=== PATIENT | female | born 1985 | race Caucasian/White ===

== ENCOUNTER 2017-07-21 16:39 | Emergency (ER) | payer BC ==
[~2017-07-21] VITALS: Ht 167.6 cm; Wt 86.2 kg
[~2017-07-21 16:39] MED LIST: AMOX/CLAV POT 81 TAB PO; AMOXIL500 M1 PO; AUGMENTIN 875-1 EACH PO; AUGMENTIN XR 101 TER PO; BENADRYL 25MG C25 MG PO; BENTYL10 M1 PO; CIPRO 500MG TA500 MG PO; ESCITALOPRAM10 M1 PO; HYDROCODONE1 TABLET PO; IBUPROFEN 600M600 MG PO; IBUPROFEN400 MG PO; IRON TABLETS325 MG PO; KEFLEX500 M1 PO; KOSHER PRENATA1 EACH PO; LABETALOL 100M100 MG PO; LORTAB 7.5/5001 TA1 PO; MEDI-FIRST IBU200 MG PO; MEDROL 4MG. DOSE4 MG PO; NORCO 325 MG-101 TAB PO; NORCO 325 MG-51 TAB PO; ONDANSETRON 4MG4 M1 PO; PERCOCET 5/3251 EACH PO; PHENERGAN 25MG.25 M1 PO; PHENERGAN25 M3 PO; PRENATAL PLUS1 TA1 PO; TYLENOL ES500 MG PO; TYLENOL325 MG PO; ZOFRAN ODT4 MG PO; ZOFRAN ODT8 MG PO
--- OUTSIDE RECORDS SUMMARY | 2017-07-21 16:46 | External Medical Summary Rpt | CCD ---
Author Author , MAIKOL LASSITER Address Unknown Phone [email or web address] Team Providers Care Traveling Phlebotomist Name Role Phone Bautista Alexandra MD, Unavailable Unavailable Bautista Alexandra MD Purpose Continuity of Care Document - 05-30-2013 through 2016 Problems Code Diagnosis DOS Provider Status 675.24 675.24 07-17-2013 [place] MASTITIS-PO [facility] 642.31 642.31 06-02-2013 Jimy TRANS [facility] LIVERED 658.01 658.01 06-02-2013 [place] OLIGOHYDRAM [facility] R 664.01 664.01 DEL 06-02-2013 Jimy W 1 DEG [facility] V27.0 V27.0 06-02-2013 [facility] LIVEBORN Allergies, Adverse Reactions, Alerts Type Drug Allergy Adverse Reaction to Substance Substance Reaction Severity NO KNOWN DRUG Unknown Unknown ALLERGIES Medications Na ND Rx Da Fi Fi Am Da Di Ph RX Ph St me C No te ll ll ou ys ag ar # ys at rm s nt no ma ic us Or Da si cy ia de te s n re d VA 00 10 0 No OM 64 -2 ET 11 1- Lo LEE 49 20 ng ZI 53 13 er NE 5 Ac 25 ti ve MG /M L AM PU L LA 00 10 0 No BE 17 -2 TA 24 1- Lo LO 36 20 ng L 46 13 er HC 0 L Ac 10 ti 0 ve MG TA BL ET HY [address] 40 -2 OM 91 1- Lo OR 31 20 ng PH 23 13 er ON 0 E Ac 2 ti MG ve /M L CA RP UJ CT ON 00 10 0 No DA 64 -2 NS 16 1- Lo ET 08 20 ng RO 02 13 er N 5 HC Ac L ti 4 ve MG /2 ML AL KE 00 10 0 No TO 40 -2 RO 93 1- Lo LA 79 20 ng C 50 13 er 30 1 Ac MG ti /M ve L AL MA 00 10 0 No PA 90 -2 P 41 1- Lo 32 98 20 ng 5 26 13 er MG 1 Ac TA ti BL ve ET Ib 62 10 0 No up 58 -2 ro 40 1- Lo fe 74 20 ng n 70 13 er 60 1 0M Ac G ti Ta ve bl et AM 00 10 0 No PI 40 -2 CI 92 1- Lo LL 98 20 ng IN 71 13 er -S 3 UL Ac B ti 3 ve GM AD D AL SO 00 10 0 No DI 40 -2 UM 97 1- Lo 98 20 ng CH 30 13 er LO 9 RI Ac DE ti ve 0. 9% SO DANA TI ON Sa 63 10 1 No li 80 -2 ne 70 0- Lo 10 20 ng Fl 07 13 er us 5 h Ac 10 ti ML ve Sy ri ng e HY [address] 40 -2 OM 91 0- Lo OR 31 20 ng PH 23 13 er ON 0 E Ac 2 ti MG ve /M L CA RP UJ CT ON 00 10 0 No DA 64 -2 NS 16 0- Lo ET 08 20 ng RO 02 13 er N 5 HC Ac L ti 4 ve MG /2 ML AL SO 00 10 1 No DI 40 -2 UM 97 0- Lo 98 20 ng CH 30 13 er LO 9 RI Ac DE ti ve 0. 9% SO DANA TI ON AP 00 09 0 No AP 40 -1 -H 60 6- Lo YD 36 20 ng RO 66 13 er CO 2 DO Ac NE ti ve 32 5M G- 7. 5M G CE 00 09 1 No FT 40 -1 RI 97 5- Lo AX 33 20 ng ON 64 13 er E 9 2 Ac GM ti ve AD D AL SO 00 09 1 No DI 40 -1 UM 97 5- Lo 10 20 ng CH 16 13 er LO 7 RI Ac DE ti ve 0. 9% SO LN Mo 00 09 1 No rp 40 -1 hi 91 5- Lo ne 76 20 ng 23 13 er 2M 0 G/ Ac Ml ti ve Sy ri ng e Ib 62 09 1 No up 58 -1 ro 40 5- Lo fe 74 20 ng n 60 13 er 40 1 0M Ac G ti Ta ve bl et CE 00 09 0 No FT 40 -1 RI 97 4- Lo AX 33 20 ng ON 64 13 er E 9 2 Ac GM ti ve AD D AL SO 00 09 0 No DI 40 -1 UM 97 4- Lo 10 20 ng CH 16 13 er LO 7 RI Ac DE ti ve 0. 9% SO LN Sa 63 09 1 No li 80 -1 ne 70 4- Lo 10 20 ng Fl 07 13 er us 5 h Ac 10 ti ML ve Sy ri ng e KE 00 09 0 No TO 40 -1 RO 93 4- Lo LA 79 20 ng C 50 13 er 30 1 Ac MG ti /M ve L AL ON 00 09 0 No DA 64 -1 NS 16 4- Lo ET 08 20 ng RO 02 13 er N 5 HC Ac L ti 4 ve MG /2 ML AL AP 00 09 0 No AP 40 -1 -H 60 4- Lo YD 36 20 ng RO 66 13 er CO 2 DO Ac NE ti ve 32 5M G- 7. 5M G MA 00 09 0 No PA 90 -1 P 41 4- Lo 32 98 20 ng 5 26 13 er MG 1 Ac TA ti BL ve ET IS 00 09 0 No OV 27 -1 UE 01 4- Lo -3 31 20 ng 70 65 13 er 2 76 Ac % ti IN ve FU S NIKITA TT LE RA 63 09 0 No D- 80 -1 SA 70 4- Lo LI 10 20 ng NE 07 13 er 5A FL Ac US ti H ve 10 ML SY RI NG E Mo 00 09 1 No rp 40 -1 hi 91 4- Lo ne 25 20 ng 83 13 er 4M 0 G/ Ac Ml ti ve Sy ri ng e PA 51 09 2 No NT 07 -1 OP 90 4- Lo RA 05 20 ng ZO 12 13 er LE 0 Ac SO ti D ve DR 40 MG TA B LA 00 09 2 No BE 17 -1 TA 24 4- Lo LO 36 20 ng L 46 13 er HC 0 L Ac 10 ti 0 ve MG TA BL ET LA 20 09 0 No NO 45 -1 LI 18 4- Lo N 71 20 ng CR 22 13 er EA 6 M Ac 56 ti GM ve DE 00 09 0 No XT 40 -0 RO 97 4- Lo SE 92 20 ng 90 13 er 5% 9 -L Ac R ti IV ve SO DANA TI ON LA [address] 40 -0 AT 97 4- Lo ED 95 20 ng 30 13 er RI 9 NG Ac ER ti S ve IN JE CT IO N PI 11 09 0 No TO 11 -0 CI 11 4- Lo N 11 20 ng 30 13 13 er 3 UN Ac IT ti S/ ve LR 50 0M L IV MA 00 09 1 No GN 40 -0 ES 96 4- Lo IU 72 20 ng M 90 13 er MCKINNEY 3 LF Ac ti 20 ve G/ 50 0 ML BA G BU 55 09 1 No TO 39 -0 RP 00 4- Lo LEE 18 20 ng NO 30 13 er L 1 1 Ac MG ti /M ve L AL MA 00 09 2 No PA 90 -0 P 41 4- Lo 32 98 20 ng 5 26 13 er MG 1 Ac TA ti BL ve ET Ib 62 09 2 No up 58 -0 ro 40 4- Lo fe 74 20 ng n 60 13 er 40 1 0M Ac G ti Ta ve bl et OX 00 09 2 No YC 40 -0 OD 60 4- Lo ON 55 20 ng E 26 13 er HC 2 L Ac 5 ti MG ve TA BL ET VA 51 09 2 No OM 07 -0 ET 90 4- Lo LEE 89 20 ng ZI 52 13 er NE 0 Ac 25 ti ve MG TA BL ET SE 67 09 2 No NO 61 -0 KO 80 4- Lo T- 31 20 ng S 00 13 er TA 1 BL Ac ET ti ve A. 50 09 2 No E. 28 -0 R 93 4- Lo PA 25 20 ng DS 00 13 er 1 Ac ti ve AM 00 09 0 No PI 78 -0 CI 13 4- Lo LL 41 20 ng IN 39 13 er 2 2 Ac GM ti ve A- V AL SO 00 09 0 No DI 40 -0 UM 97 4- Lo 10 20 ng CH 16 13 er LO 7 RI Ac DE ti ve 0. 9% SO LN AP 00 09 3 No AP 40 -0 -H 60 3- Lo YD 36 20 ng RO 66 13 er CO 2 DO Ac NE ti ve 32 5M G- 7. 5M G VA 00 09 2 No OM 64 -0 ET 11 3- Lo LEE 49 20 ng ZI 53 13 er NE 5 Ac 25 ti ve MG /M L AM PU L SO 00 09 2 No DI 40 -0 UM 97 3- Lo 98 20 ng CH 42 13 er LO 0 RI Ac DE ti ve 0. 9% SO DANA TI ON LA 00 09 3 No BE 17 -0 TA 24 3- Lo LO 36 20 ng L 46 13 er HC 0 L Ac 10 ti 0 ve MG TA BL ET MA 00 09 1 No GN 40 -0 ES 96 3- Lo IU 72 20 ng M 90 13 er MCKINNEY 3 LF Ac ti 20 ve G/ 50 0 ML BA G LA [address] 40 -0 AT 97 3- Lo ED 95 20 ng 30 13 er RI 9 NG Ac ER ti S ve IN JE CT IO N Vital Signs 07-17-2013 18:30 Name Value Interpretat Reference Comment ion Range Body 101.3 Temperature [degF] BP 67 mm[Hg] Diastolic BP Systolic 122 mm[Hg] Heart 99 /min Rate/Pulse Respiratory 20 /min Rate 07-17-2013 08:00 Name Value Interpretat Reference Comment ion Range O2% 95 % 07-17-2013 02:59 Name Value Interpretat Reference Comment ion Range Height 167.64 cm Weight 84.057 kg Measured 07-16-2013 22:49 Name Value Interpretat Reference Comment ion Range Body 100.5 Temperature [degF] BP 104 mm[Hg] Diastolic BP Systolic 157 mm[Hg] Heart 123 /min Rate/Pulse O2% 98 % Respiratory 20 /min Rate Weight 0 [oz_av] Measured 06-12-2013 18:30 Name Value Interpretat Reference Comment ion Range Body 98.1 [degF] Temperature BP 50 mm[Hg] Diastolic BP Systolic 124 mm[Hg] Heart 95 /min Rate/Pulse Respiratory 20 /min Rate 06-12-2013 16:00 Name Value Interpretat Reference Comment ion Range O2% 98 % 06-10-2013 21:26 Name Value Interpretat Reference Comment ion Range Height 167.64 cm Weight 86.637 kg Measured 06-10-2013 17:59 Name Value Interpretat Reference Comment ion Range Body 102.7 Temperature [degF] BP 82 mm[Hg] Diastolic BP Systolic 151 mm[Hg] Heart 137 /min Rate/Pulse O2% 99 % Respiratory 20 /min Rate Weight 0 [oz_av] Measured 05-31-2013 07:32 Name Value Interpretat Reference Comment ion Range Weight 200 [lb_av] Measured Weight 90.720 kg Measured Results Labs Lab Lab Date Result Refere Interp Status Commen Order Detail nces retati t Range on Hemoglobin A1c in Blood (03-23-2017 13:05) Hemoglo 5.2 % 0.0% Normal complet bin A1c 017 - ed in 13:05 7.0% Blood UA Dipstick Pnl Ur (03-22-2017 13:34) Urobili 0.2 0.2 - complet nogen 017 E.U./dL 1.0 ed Ur Ql 13:34 E.U./dL Strip Nitrite [id number] Negativ complet Ur Ql 017 09 e ed Strip 13:34 Negativ e SCT Leukocy [id number] Negativ complet te 017 09 e ed esteras 13:34 Negativ e Ur Ql e SCT Strip.a uto Prot Ur [id number] Negativ complet Ql 017 09 e ed Strip 13:34 Negativ e SCT Hgb Ur [id number] Negativ complet Ql 017 09 e ed Strip.a 13:34 Negativ uto e SCT Bilirub [id number] Negativ complet Ur Ql 017 09 e ed Strip 13:34 Negativ e SCT Ketones [id number] Negativ complet Ur Ql 017 09 e ed Strip 13:34 Negativ e SCT Glucose [id number] Negativ complet Ur 017 09 e ed Strip-m 13:34 Negativ Cnc e SCT Sp Gr <= 1.001-1 complet Ur 017 1.005 .030 ed Strip 13:34 pH Ur 7.5 5.0-8.0 complet Strip.a 017 ed uto 13:34 Clarity [id number] Clear complet Ur 017 01 ed 13:34 Clear SCT Color [id number] Yellow, complet Ur 017 09 Straw ed 13:34 Yellow color SCT Comp Metab 1997 Pnl SerPl (03-22-2017 12:20) Anion 5.0 3.0-11. complet Gap3 017 mmol/L 0 ed SerPl-s 12:20 Cnc BUN/Cre 8.6 7.0-25. complet at 017 0 ed SerPl 12:20 Albumin 1.6 1.5-2.5 complet /Glob 017 g/dL ed SerPl 12:20 Globuli 3.0 complet n Ur 017 gm/dL ed Elph-mC 12:20 nc GFR/BSA 98 >60 complet .pred 017 mL/min/ ed SerPl 12:20 1.73 MDRD-Ar VRat Bilirub 0.2 0.3-1.2 complet 017 mg/dL ed SerPl-m 12:20 Cnc ALP 73 U/L 25-100 complet SerPl-c 017 ed Cnc 12:20 AST 17 U/L 0-33 complet SerPl-c 017 ed Cnc 12:20 ALT 13 U/L 7-40 complet SerPl w 017 ed 12:20 P-5'-P- cCnc Albumin 4.70 3.20-4. complet 017 g/dL 80 ed SerPl-m 12:20 Cnc Prot 7.7 5.7-8.2 complet SerPl-m 017 g/dL ed Cnc 12:20 Calcium 9.8 8.7-10. complet 017 mg/dL 4 ed XXX-sCn 12:20 c CO2 32.0 20.0-31 complet SerPl-s 017 mmol/L .0 ed Cnc 12:20 Chlorid 106 99-109 complet e 017 mmol/L ed SerPl-s 12:20 Cnc Potassi 3.6 3.5-5.5 complet um 017 mmol/L ed Bld-sCn 12:20 c Sodium 143 132-146 complet Bld-sCn 017 mmol/L ed c 12:20 Creat 0.70 0.60-1. complet Bld-mCn 017 mg/dL 30 ed c 12:20 BUN 6 mg/dL 9-23 complet Bld-mCn 017 ed c 12:20 Glucose 94 70-100 complet 017 mg/dL ed Bld-mCn 12:20 c LPL SerPl-cCnc (03-22-2017 12:20) Lipase 45 U/L 6-51 complet SerPl-c 017 ed Cnc 12:20 CBC W Diff pnl,unspecified Bld (03-22-2017 12:20) WBC 06-26-2 6.52 3.50-10 complet nRBC 017 10*3/mm .80 ed cor # 12:20 3 Bld Imm 06-26-2 0.01 0.00-0. complet Granulo 017 10*3/mm 03 ed cytes # 12:20 3 Bld Basophi 06-26-2 0.02 0.00-0. complet ls # 017 10*3/mm 20 ed Bld 12:20 3 Auto Eosinop 06-26-2 0.20 0.00-0. complet hil # 017 10*3/mm 30 ed Bld 12:20 3 Auto Monocyt 06-26-2 0.41 0.00-1. complet es # 017 10*3/mm 00 ed Bld 12:20 3 Auto Lymphoc 06-26-2 2.26 0.60-4. complet ytes # 017 10*3/mm 80 ed Bld 12:20 3 Auto Neutrop 06-26-2 3.62 1.50-8. complet hils # 017 10*3/mm 30 ed Bld 12:20 3 Auto Imm 06-26-2 0.2 % 0.0-0.6 complet Granulo 017 ed cytes/l 12:20 euk NFr Bld Basophi -26-2 0.3 % 0.0-1.0 complet ls/leuk 017 ed NFr 12:20 Bld Auto Eosinop 06-26-2 3.1 % 0.0-3.0 complet hil/shayla 017 ed k NFr 12:20 Bld Auto Monocyt 06-26-2 6.3 % 0.0-12. complet es/leuk 017 0 ed NFr 12:20 Bld Auto Lymphoc 06-26-2 34.7 % 24.0-44 complet ytes/le 017 .0 ed uk NFr 12:20 Bld Auto Neutrop 06-26-2 55.4 % 41.0-71 complet hils/le 017 .0 ed uk NFr 12:20 Bld Auto Platele 06-26-2 353 150-450 complet t # Bld 017 10*3/mm ed Auto 12:20 3 PMV Bld 26-2 9.7 fL 6.0-12. complet Auto 017 0 ed 12:20 RDW RBC 06-26-2 40.7 fl 37.0-54 complet Auto 017 .0 ed 12:20 RDW RBC 03-22-2 12.8 % 11.3-14 complet 017 .5 ed Auto-Rt 12:20 o MCHC 03-22-2 32.5 32.0-36 complet RBC 017 g/dL .0 ed Auto-mC 12:20 nc MCH RBC 03-22-2 28.1 pg 27.0-31 complet Qn 017 .0 ed Auto 12:20 MCV RBC 03-22-2 86.6 fL 80.0-99 complet Auto 017 .0 ed 12:20 Hct VFr 03-22-2 38.2 % 34.5-44 complet Bld 017 .0 ed Auto 12:20 Hgb 03-22-2 12.4 11.5-15 complet Bld-mCn 017 g/dL .5 ed c 12:20 RBC # 26-2 4.41 3.89-5. complet Bld 017 10*6/mm 14 ed Auto 12:20 3 CBC with AUTO DIFF (07-17-2013 10:00) WBC # --2 10.1 4.8-10. complet Bld 013 K/MM3 8 ed Auto 10:00 RBC # 21-2 3.95 4.2-5.4 complet Bld 013 M/mm3 ed Auto 10:00 Hgb 07-17-2 11.4 12.2-16 complet Bld-mCn 013 g/dL .2 ed c 10:00 Hct Fr 07-17-2 35.1 % 37.0-47 complet Bld 013 .0 ed 10:00 MCV RBC 07-17-2 88.9 fl 82.2-97 complet 013 .8 ed 10:00 MCH RBC 07-17-2 28.8 pg 27-31.2 complet Qn 013 ed Auto 10:00 MEAN 07-17-2 32.4 31.8-35 complet CORPUSC 013 g/dl .4 ed ULAR 10:00 HGB CONC RDW RBC 07-17-2 14.0 % 11.5-17 complet Auto 013 .5 ed 10:00 Platele 07-17-2 253 142-424 complet t Bld 013 K/mm3 ed Ql 10:00 Manual MEAN 07-17-2 7.5 fl 7.4-10. complet PLATELE 013 4 ed T 10:00 VOLUME Granulo 2 78.5 % 37.0-80 complet cytes 013 .0 ed Fr Bld 10:00 Auto LYMPH % 07-17-2 12.2 % 10-50.0 complet 013 ed 10:00 Monocyt 07-17-2 5.1 % 1.7-9.3 complet es Fr 013 ed Bld 10:00 Auto Eosinop 07-17-2 4.1 % 0.1-12. complet hil Fr 013 0 ed Bld 10:00 Auto Basophi 07-17-2 0.2 % 0.1-2.0 complet ls Fr 013 ed Bld 10:00 Auto Granulo 07-17-2 7.9 1.8-7.8 complet cytes # 013 K/mm3 ed Bld 10:00 Auto Lymphoc 07-17-2 1.2 0.7-4.5 complet ytes Fr 013 K/mm3 ed Bld 10:00 Auto Monocyt 07-17-2 0.5 0.1-1.0 complet es # 013 K/mm3 ed Bld 10:00 Auto Eosinop 07-17-2 0.4 0.0-0.4 complet hil # 013 K/mm3 ed Bld 10:00 Auto Basophi 07-17-2 0.0 0-0.2 complet ls # 013 K/MM3 ed Bld 10:00 Auto BASIC METABOLIC PANEL (07-16-2013 23:15) Glucose 91 74-106 complet 013 mg/dL ed Bld-mCn 23:15 c BUN 15 7-18 complet Bld-mCn 013 mg/dL ed c 23:15 Creat 0.9 0.6-1.0 complet SerPl-m 013 mg/dL ed Cnc 23:15 ESTIMAT 123 50-200 complet ED 013 ML/MIN ed CREATIN 23:15 INE CLEARAN CE GFR 75 59- complet (ESTIMA 013 ML/MIN ed TIFFANIE) 23:15 Sodium 139 136-145 complet SerPl-s 013 mmoL/L ed Cnc 23:15 Potassi 3.8 3.5-5.1 complet um 013 mmoL/L ed SerPl-s 23:15 Cnc Chlorid 101 98-107 complet e 013 mmoL/L ed SerPl-s 23:15 Cnc CO2 07-16- 28 21.0-32 complet SerPl-s 013 mmoL/L .0 ed Cnc 23:15 Calcium 07-16-2 9.4 8.5-10. complet 013 mg/dL 1 ed SerPl-m 23:15 Cnc CBC with AUTO DIFF (07-16-2013 23:15) WBC # 10-20-2 13.1 4.8-10. complet Bld 013 K/MM3 8 ed Auto 23:15 RBC # 1020-2 4.34 4.2-5.4 complet Bld 013 M/mm3 ed Auto 23:15 Hgb 07-16-2 12.6 12.2-16 complet Bld-mCn 013 g/dL .2 ed c 23:15 Hct Fr 38.3 % 37.0-47 complet Bld 013 .0 ed 23:15 MCV RBC 07-16- 88.3 fl 82.2-97 complet 013 .8 ed 23:15 MCH RBC 07-16- 29.1 pg 27-31.2 complet Qn 013 ed Auto 23:15 MEAN 07-16-2 32.9 31.8-35 complet CORPUSC 013 g/dl .4 ed ULAR 23:15 HGB CONC RDW RBC 07-16-2 14.0 % 11.5-17 complet Auto 013 .5 ed 23:15 Platele 07-16-2 297 142-424 complet t Bld 013 K/mm3 ed Ql 23:15 Manual MEAN 07-16-2 7.5 fl 7.4-10. complet PLATELE 013 4 ed T 23:15 VOLUME Granulo 07-16-2 77.9 % 37.0-80 complet cytes 013 .0 ed Fr Bld 23:15 Auto LYMPH % 20-2 12.5 % 10-50.0 complet 013 ed 23:15 Monocyt 10-20-2 4.4 % 1.7-9.3 complet es Fr 013 ed Bld 23:15 Auto Eosinop 10-20-2 4.9 % 0.1-12. complet hil Fr 013 0 ed Bld 23:15 Auto Basophi -20-2 0.3 % 0.1-2.0 complet ls Fr 013 ed Bld 23:15 Auto Granulo 10-20-2 10.2 1.8-7.8 complet cytes # 013 K/mm3 ed Bld 23:15 Auto Lymphoc 10-20-2 1.6 0.7-4.5 complet ytes Fr 013 K/mm3 ed Bld 23:15 Auto Monocyt 10-20-2 0.6 0.1-1.0 complet es # 013 K/mm3 ed Bld 23:15 Auto Eosinop 10-20-2 0.6 0.0-0.4 complet hil # 013 K/mm3 ed Bld 23:15 Auto Basophi 10-20-2 0.0 0-0.2 complet ls # 013 K/MM3 ed Bld 23:15 Auto CBC with AUTO DIFF (06-12-2013 17:05) WBC # 09-16-2 11.6 4.8-10. complet Bld 013 K/MM3 8 ed Auto 17:05 RBC # 09-16-2 3.60 4.2-5.4 complet Bld 013 M/mm3 ed Auto 17:05 Hgb 09-16-2 10.8 12.2-16 complet Bld-mCn 013 g/dL .2 ed c 17:05 Hct Fr 16-2 33.1 % 37.0-47 complet Bld 013 .0 ed 17:05 MCV RBC -16-2 92.2 fl 82.2-97 complet 013 .8 ed 17:05 MCH RBC -16-2 30.0 pg 27-31.2 complet Qn 013 ed Auto 17:05 MEAN -16-2 32.5 31.8-35 complet CORPUSC 013 g/dl .4 ed ULAR 17:05 HGB CONC RDW RBC -16-2 14.0 % 11.5-17 complet Auto 013 .5 ed 17:05 Platele -16-2 396 142-424 complet t Bld 013 K/mm3 ed Ql 17:05 Manual MEAN -16-2 8.4 fl 7.4-10. complet PLATELE 013 4 ed T 17:05 VOLUME Granulo -16-2 63.4 % 37.0-80 complet cytes 013 .0 ed Fr Bld 17:05 Auto LYMPH % -16-2 19.1 % 10-50.0 complet 013 ed 17:05 Monocyt -16-2 2.5 % 1.7-9.3 complet es Fr 013 ed Bld 17:05 Auto Eosinop 09-16-2 14.8 % 0.1-12. complet hil Fr 013 0 ed Bld 17:05 Auto Basophi 09-16-2 0.2 % 0.1-2.0 complet ls Fr 013 ed Bld 17:05 Auto Granulo -16-2 7.3 1.8-7.8 complet cytes # 013 K/mm3 ed Bld 17:05 Auto Lymphoc -16-2 2.2 0.7-4.5 complet ytes Fr 013 K/mm3 ed Bld 17:05 Auto Monocyt 09-16-2 0.3 0.1-1.0 complet es # 013 K/mm3 ed Bld 17:05 Auto Eosinop -16-2 1.7 0.0-0.4 complet hil # 013 K/mm3 ed Bld 17:05 Auto Basophi 16-2 0.0 0-0.2 complet ls # 013 K/MM3 ed Bld 17:05 Auto BASIC METABOLIC PANEL (06-11-2013 06:10) Glucose 101 74-106 complet 013 mg/dL ed Bld-mCn 06:10 c BUN 9 mg/dL 7-18 complet Bld-mCn 013 ed c 06:10 Creat 06-11- 0.8 0.6-1.0 complet SerPl-m 013 mg/dL ed Cnc 06:10 ESTIMAT 143 50-200 complet ED 013 ML/MIN ed CREATIN 06:10 INE CLEARAN CE GFR 85 59- complet (ESTIMA 013 ML/MIN ed TIFFANIE) 06:10 Sodium 139 136-145 complet SerPl-s 013 mmoL/L ed Cnc 06:10 Potassi 3.6 3.5-5.1 complet um 013 mmoL/L ed SerPl-s 06:10 Cnc Chlorid 104 98-107 complet e 013 mmoL/L ed SerPl-s 06:10 Cnc CO2 27 21.0-32 complet SerPl-s 013 mmoL/L .0 ed Cnc 06:10 Calcium 09-15-2 7.6 8.5-10. complet 013 mg/dL 1 ed SerPl-m 06:10 Cnc CBC with AUTO DIFF (06-11-2013 06:10) WBC # 09-15-2 19.9 4.8-10. complet Bld 013 K/MM3 8 ed Auto 06:10 RBC # 09-15-2 3.64 4.2-5.4 complet Bld 013 M/mm3 ed Auto 06:10 Hgb 09-15-2 10.8 12.2-16 complet Bld-mCn 013 g/dL .2 ed c 06:10 Hct Fr -15-2 33.3 % 37.0-47 complet Bld 013 .0 ed 06:10 MCV RBC -15-2 91.5 fl 82.2-97 complet 013 .8 ed 06:10 MCH RBC -15-2 29.7 pg 27-31.2 complet Qn 013 ed Auto 06:10 MEAN -15-2 32.5 31.8-35 complet CORPUSC 013 g/dl .4 ed ULAR 06:10 HGB CONC RDW RBC -15-2 14.1 % 11.5-17 complet Auto 013 .5 ed 06:10 Platele 09-15-2 383 142-424 complet t Bld 013 K/mm3 ed Ql 06:10 Manual MEAN -15-2 7.5 fl 7.4-10. complet PLATELE 013 4 ed T 06:10 VOLUME Granulo 09-15-2 83.1 % 37.0-80 complet cytes 013 .0 ed Fr Bld 06:10 Auto LYMPH % 09-15-2 10.2 % 10-50.0 complet 013 ed 06:10 Monocyt 09-15-2 3.6 % 1.7-9.3 complet es Fr 013 ed Bld 06:10 Auto Eosinop 09-15-2 2.9 % 0.1-12. complet hil Fr 013 0 ed Bld 06:10 Auto Basophi 09-15-2 0.3 % 0.1-2.0 complet ls Fr 013 ed Bld 06:10 Auto Granulo 09-15-2 16.6 1.8-7.8 complet cytes # 013 K/mm3 ed Bld 06:10 Auto Lymphoc 09-15-2 2.0 0.7-4.5 complet ytes Fr 013 K/mm3 ed Bld 06:10 Auto Monocyt 09-15-2 0.7 0.1-1.0 complet es # 013 K/mm3 ed Bld 06:10 Auto Eosinop 09-15-2 0.6 0.0-0.4 complet hil # 013 K/mm3 ed Bld 06:10 Auto Basophi 09-15-2 0.1 0-0.2 complet ls # 013 K/MM3 ed Bld 06:10 Auto URINALYSIS/COMPLETE (06-10-2013 18:35) URINE 09-14-2 YELLOW YELLOW complet COLOR 013 ed 18:35 URINE 09-14-2 CLEAR CLEAR complet APPEARA 013 ed NCE 18:35 URINE 09-14-2 NEGATIV NEG complet GLUCOSE 013 E ed - 18:35 DIPSTIC K URINE 09-14-2 NEGATIV NEG complet BILIRUB 013 E ed IN - 18:35 DIPSTIC K URINE 09-14-2 NEGATIV NEG complet KETONE 013 E mg/dL ed 18:35 URINE 09-14-2 1.010 1.005-1 complet SPECIFI 013 UNK .030 ed C 18:35 GRAVITY URINE 09-14-2 3+ NEG complet BLOOD 013 ed 18:35 URINE 09-14-2 6.0 UNK 5.0-8.5 complet PH 013 ed 18:35 URINE 09-14-2 NEGATIV NEG complet PROTEIN 013 E mg/dL ed - 18:35 DIPSTIC K URINE 09-14-2 0.2 NEG complet UROBILI 013 E.U./dL ed NOGEN - 18:35 DIPSTIC K URINE 09-14-2 NEGATIV NEG complet NITRATE 013 E ed - 18:35 DIPSTIC K URINE 09-14-2 TRACE NEG complet LEUK 013 ed ESTERAS 18:35 E URINE 09-14-2 3-5 0 complet RBC 013 rbc/hpf ed 18:35 URINE 09-14-2 5-10 O complet WBC 013 wbc/hpf ed 18:35 URINE 09-14-2 3-5 0-5 complet SQUAMOU 013 #/hpf ed S CELLS 18:35 URINE 09-14-2 5-10 NONE complet RENAL 013 #/HPF ed CELLS 18:35 COMPREHENSIVE METABOLIC PANEL (06-10-2013 18:20) Glucose 09-14-2 103 74-106 complet 013 mg/dL ed Bld-mCn 18:20 c BUN 06-10- 10 7-18 complet Bld-mCn 013 mg/dL ed c 18:20 Creat 0.8 0.6-1.0 complet SerPl-m 013 mg/dL ed Cnc 18:20 ESTIMAT 150 50-200 complet ED 013 ML/MIN ed CREATIN 18:20 INE CLEARAN CE GFR 85 59- complet (ESTIMA 013 ML/MIN ed TIFFANIE) 18:20 Sodium 139 136-145 complet SerPl-s 013 mmoL/L ed Cnc 18:20 Potassi 3.6 3.5-5.1 complet um 013 mmoL/L ed SerPl-s 18:20 Cnc Chlorid 102 98-107 complet e 013 mmoL/L ed SerPl-s 18:20 Cnc CO2 26 21.0-32 complet SerPl-s 013 mmoL/L .0 ed Cnc 18:20 Calcium 8.6 8.5-10. complet 013 mg/dL 1 ed SerPl-m 18:20 Cnc Prot 7.4 6.4-8.2 complet SerPl-m 013 gm/dL ed Cnc 18:20 Albumin 06-10- 3.4 3.4-5.0 complet 013 gm/dL ed SerPl-m 18:20 Cnc Globuli 4.0 1.3-3.2 complet n 013 gm/dL ed Ser-mCn 18:20 c Albumin 0.9 UNK 1.1-1.8 complet /Glob 013 ed SerPl-m 18:20 Rto Bilirub 0.2 0.2-1.0 complet 013 mg/dL ed SerPl-m 18:20 Cnc AST 06-10- 16 U/L 15-37 complet SerPl-c 013 ed Cnc 18:20 ALT 06-10- 37 U/L 30-65 complet SerPl-c 013 ed Cnc 18:20 ALP 148 U/L 50-136 complet SerPl-c 013 ed Cnc 18:20 D Dimer PPP (09-14-2013 18:20) D Dimer 06-10-2 746 0-400 High complet PPP 013 ng/mL alert ed 18:20 CBC with AUTO DIFF (06-10-2013 18:20) WBC # 09-14-2 12.4 4.8-10. complet Bld 013 K/MM3 8 ed Auto 18:20 RBC # 14-2 4.01 4.2-5.4 complet Bld 013 M/mm3 ed Auto 18:20 Hgb -14-2 12.0 12.2-16 complet Bld-mCn 013 g/dL .2 ed c 18:20 Hct Fr 06-10-2 37.0 % 37.0-47 complet Bld 013 .0 ed 18:20 MCV RBC 06-10-2 92.1 fl 82.2-97 complet 013 .8 ed 18:20 MCH RBC 06-10-2 30.0 pg 27-31.2 complet Qn 013 ed Auto 18:20 MEAN 06-10-2 32.6 31.8-35 complet CORPUSC 013 g/dl .4 ed ULAR 18:20 HGB CONC RDW RBC 06-10-2 14.6 % 11.5-17 complet Auto 013 .5 ed 18:20 Platele --2 355 142-424 complet t Bld 013 K/mm3 ed Ql 18:20 Manual MEAN 06-10-2 7.7 fl 7.4-10. complet PLATELE 013 4 ed T 18:20 VOLUME Granulo -14-2 85.5 % 37.0-80 complet cytes 013 .0 ed Fr Bld 18:20 Auto LYMPH % -14-2 10.1 % 10-50.0 complet 013 ed 18:20 Monocyt -14-2 2.2 % 1.7-9.3 complet es Fr 013 ed Bld 18:20 Auto Eosinop -14-2 2.1 % 0.1-12. complet hil Fr 013 0 ed Bld 18:20 Auto Basophi -14-2 0.2 % 0.1-2.0 complet ls Fr 013 ed Bld 18:20 Auto Granulo -14-2 10.6 1.8-7.8 complet cytes # 013 K/mm3 ed Bld 18:20 Auto Lymphoc 09-14-2 1.3 0.7-4.5 complet ytes Fr 013 K/mm3 ed Bld 18:20 Auto Monocyt 06-10-2 0.3 0.1-1.0 complet es # 013 K/mm3 ed Bld 18:20 Auto Eosinop 06-10-2 0.3 0.0-0.4 complet hil # 013 K/mm3 ed Bld 18:20 Auto Basophi 06-10-2 0.0 0-0.2 complet ls # 013 K/MM3 ed Bld 18:20 Auto Magnesium SerPl-mCnc (06-01-2013 06:30) Magnesi 4.4 1.4-2.2 complet um 013 mg/dL ed SerPl-m 06:30 Cnc pH BldCo (05-31-2013 11:56) pH 7.30 7.35-7. complet BldCo 013 UNK 45 ed 11:56 URINALYSIS/COMPLETE (05-31-2013 08:05) URINE YELLOW YELLOW complet COLOR 013 ed 08:05 URINE 05-31- CLEAR CLEAR complet APPEARA 013 ed NCE 08:05 URINE NEGATIV NEG complet GLUCOSE 013 E ed - 08:05 DIPSTIC K URINE NEGATIV NEG complet BILIRUB 013 E ed IN - 08:05 DIPSTIC K URINE 05-31-2 NEGATIV NEG complet KETONE 013 E mg/dL ed 08:05 URINE 05-31-2 1.015 1.005-1 complet SPECIFI 013 UNK .030 ed C 08:05 GRAVITY URINE TRACE-L NEG complet BLOOD 013 YSED ed 08:05 URINE 2 6.0 UNK 5.0-8.5 complet PH 013 ed 08:05 URINE 05-31-2 NEGATIV NEG complet PROTEIN 013 E mg/dL ed - 08:05 DIPSTIC K URINE 05-31-2 0.2 NEG complet UROBILI 013 E.U./dL ed NOGEN - 08:05 DIPSTIC K URINE 05-31-2 NEGATIV NEG complet NITRATE 013 E ed - 08:05 DIPSTIC K URINE 05-31-2 NEGATIV NEG complet LEUK 013 E ed ESTERAS 08:05 E Magnesium SerPl-mCnc (05-31-2013 06:35) Magnesi 4.8 1.4-2.2 complet um 013 mg/dL ed SerPl-m 06:35 Cnc Magnesium SerPl-mCnc (05-30-2013 11:15) Magnesi 4.1 1.4-2.2 complet um 013 mg/dL ed SerPl-m 11:15 Cnc BASIC METABOLIC PANEL (05-30-2013 11:15) Glucose 95 74-106 complet 013 mg/dL ed Bld-mCn 11:15 c BUN 4 mg/dL 7-18 complet Bld-mCn 013 ed c 11:15 Creat 0.6 0.6-1.0 complet SerPl-m 013 mg/dL ed Cnc 11:15 ESTIMAT 200 50-200 complet ED 013 ML/MIN ed CREATIN 11:15 INE CLEARAN CE GFR 119 59- complet (ESTIMA 013 ML/MIN ed TIFFANIE) 11:15 Sodium 138 136-145 complet SerPl-s 013 mmoL/L ed Cnc 11:15 Potassi 3.9 3.5-5.1 complet um 013 mmoL/L ed SerPl-s 11:15 Cnc Chlorid 104 98-107 complet e 013 mmoL/L ed SerPl-s 11:15 Cnc CO2 22 21.0-32 complet SerPl-s 013 mmoL/L .0 ed Cnc 11:15 Calcium 8.5 8.5-10. complet 013 mg/dL 1 ed SerPl-m 11:15 Cnc URIC ACID (05-30-2013 11:15) URIC 3.5 2.6-7.2 complet ACID 013 mg/dL ed 11:15 AST SerPl-cCnc (05-30-2013 11:15) AST 10 U/L 15-37 complet SerPl-c 013 ed Cnc 11:15 ALT SerPl-cCnc (05-30-2013 11:15) ALT 26 U/L 30-65 complet SerPl-c 013 ed Cnc 11:15 Fibrinogen PPP-mCnc (05-30-2013 11:15) Fibrino 05-30-2 457.5 204.1-4 complet gen 013 mg/dL 58.1 ed PPP-mCn 11:15 c D Dimer PPP (05-30-2013 11:15) D Dimer 1730 0-400 High complet PPP 013 ng/mL alert ed 11:15 CBC with AUTO DIFF (05-30-2013 11:15) WBC # -03-2 11.4 4.8-10. complet Bld 013 K/MM3 8 ed Auto 11:15 RBC # 05-30-2 3.80 4.2-5.4 complet Bld 013 M/mm3 ed Auto 11:15 Hgb 05-30- 11.5 12.2-16 complet Bld-mCn 013 g/dL .2 ed c 11:15 Hct Fr 34.0 % 37.0-47 complet Bld 013 .0 ed 11:15 MCV RBC 89.4 fl 82.2-97 complet 013 .8 ed 11:15 MCH RBC 2 30.3 pg 27-31.2 complet Qn 013 ed Auto 11:15 MEAN 33.9 31.8-35 complet CORPUSC 013 g/dl .4 ed ULAR 11:15 HGB CONC RDW RBC 05-30-2 15.0 % 11.5-17 complet Auto 013 .5 ed 11:15 Platele 05-30- 231 142-424 complet t Bld 013 K/mm3 ed Ql 11:15 Manual MEAN 9.1 fl 7.4-10. complet PLATELE 013 4 ed T 11:15 VOLUME Granulo 68.8 % 37.0-80 complet cytes 013 .0 ed Fr Bld 11:15 Auto LYMPH % 05-30-2 23.2 % 10-50.0 complet 013 ed 11:15 Monocyt 05-30-2 4.8 % 1.7-9.3 complet es Fr 013 ed Bld 11:15 Auto Eosinop 05-30-2 3.0 % 0.1-12. complet hil Fr 013 0 ed Bld 11:15 Auto Basophi 05-30-2 0.1 % 0.1-2.0 complet ls Fr 013 ed Bld 11:15 Auto Granulo 7.8 1.8-7.8 complet cytes # 013 K/mm3 ed Bld 11:15 Auto Lymphoc 2.7 0.7-4.5 complet ytes Fr 013 K/mm3 ed Bld 11:15 Auto Monocyt 0.5 0.1-1.0 complet es # 013 K/mm3 ed Bld 11:15 Auto Eosinop 0.3 0.0-0.4 complet hil # 013 K/mm3 ed Bld 11:15 Auto Basophi 0.0 0-0.2 complet ls # 013 K/MM3 ed Bld 11:15 Auto Procedures Procedure DOS Code Location Performer Comment REPAIR OB 75.69 Bautista Alexandra MD LACERATIO N NEC Encounters Encounter Start End Date Code Location Performer Type Date Inpatient [place] Alex[place] MD ([place]) 3 22:56 3 02:50 [facility] Inpatient [place] Alex[place] MD ([place]) 3 18:08 3 18:26 [facility] Inpatient [place] Alexandra MD ([place]) 3 09:54 3 11:15 [facility]
--- OUTSIDE RECORDS SUMMARY | 2017-07-21 16:46 | External Medical Summary Rpt | CCD ---
Author Author , MAIKOL LASSITER Address Unknown Phone [email or web address] Team Providers Care Team Psychologist Name Role Phone Bautista Alexandra MD, Unavailable Unavailable Bautista Alexandra MD Purpose Continuity of Care Document - 05-30-2013 through 2016 Problems Code Diagnosis DOS Provider Status 675.24 675.24 07-17-2013 Pierce MASTITIS-PO [facility] 642.31 642.31 06-02-2013 Jimy TRANS [facility] LIVERED 658.01 658.01 06-02-2013 Pierce OLIGOHYDRAM [facility] R 664.01 664.01 DEL 06-02-2013 Jimy W 1 DEG [facility] V27.0 V27.0 06-02-2013 [facility] LIVEBORN Allergies, Adverse Reactions, Alerts Type [...] ia de te s n re d MT 00 10 0 No OM 64 -2 [...] 5 ti MG ve TA BL ET MT 51 09 2 No OM 07 -0 [...] ve 32 5M G- 7. 5M G MT 00 09 2 No OM 64 -0 [...] ed Ur Ql 13:34 E.U./dL Strip Nitrite 2097066 Negativ complet Ur Ql 017 09 e ed Strip 13:34 Negativ e SCT Leukocy 9852637 Negativ complet te 017 09 e ed esteras 13:34 Negativ e Ur Ql e SCT Strip.a uto Prot Ur [id number] Negativ complet Ql 017 09 e ed Strip 13:34 Negativ e SCT Hgb Ur 1732099 Negativ complet Ql 017 09 e ed Strip.a 13:34 Negativ uto e SCT Bilirub 8605935 Negativ complet Ur Ql 017 09 e ed Strip 13:34 Negativ e SCT Ketones 5590070 Negativ complet Ur Ql 017 09 e ed Strip 13:34 Negativ e SCT Glucose 5296822 Negativ complet Ur 017 09 e ed Strip-m 13:34 Negativ Cnc e SCT Sp Gr <= 1.001-1 complet Ur 017 1.005 .030 ed Strip 13:34 pH Ur 7.5 5.0-8.0 complet Strip.a 017 ed uto 13:34 Clarity [id number] Clear complet Ur 017 01 ed 13:34 Clear SCT Color 6098429 Yellow, complet Ur 017 09 Straw ed [...] Alexandra MD (IN) 3 22:56 3 02:50 [facility] Inpatient SEBASTIÁN Alexandra MD ([place]) 3 18:08 3 18:26 [facility] Inpatient SEBASTIÁN Alexandra MD ([place]) 3 09:54 3 11:15 [facility]
--- OUTSIDE RECORDS SUMMARY | 2017-07-21 16:47 | External Medical Summary Rpt | CCD ---
Author Author [employer] Organization [employer] Address Unknown Phone Unavailable Purpose Continuity of Care Document - through 2016
--- OUTSIDE RECORDS SUMMARY | 2017-07-21 16:47 | External Medical Summary Rpt | CCD ---
Author Author , MAIKOL LASSITER Address Unknown Phone [email or web address] Immunization Name Date Rout CVX Reac Dose Comm Prov Is Faci e tion ent ider Refu lity Give sed n Tdap 07-0 Intr 115 0.5 Hist WALM No WALM , 6-20 amus mL oric ART5 ART5 Adso 16 cula al 91 91 rbed r Info rmat ion - Sour ce Unsp ecif ied
--- OUTSIDE RECORDS SUMMARY | 2017-07-21 16:47 | External Medical Summary Rpt | CCD ---
Author Author , MAIKOL LASSITER Address Unknown Phone [email or web address] Immunization Name Date Rout CVX Reac Dose Comm Prov Is Faci e tion ent ider Refu lity Give sed n Tdap 07-0 Intr 115 0.5 Hist WALM No WALM , 6-20 amus mL oric ART5 ART5 Adso 16 cula al 91 91 rbed r Info rmat ion - Sour ce Unsp ecif ied
--- OUTSIDE RECORDS SUMMARY | 2017-07-21 16:48 | External Medical Summary Rpt ---
Author Author [employer], [employer] Organization [employer] Address Unknown Phone Unavailable Results CBC W Auto Differential panel in Blood Observa Value Referen Units Interpr Notes Date tion ce etation Range Basophils 0 - 0.2 K/MM3 Normal No Mar 23 informati 2016 1:05 [#/volume on in PM ] in source Blood by data Automated count Basophils 0.1 - 2.0 % Normal No Mar 23 /100 informati 2016 1:05 leukocyte on in PM s in source Blood by data Automated count Eosinophi 0.0 - 0.4 K/mm3 Normal No Mar 23 ls informati 2016 1:05 [#/volume on in PM ] in source Blood by data Automated count Eosinophi 0.1 - % Normal No Mar 23 ls/100 12.0 informati 2016 1:05 leukocyte on in PM s in source Blood by data Automated count Granulocy 1.8 - 7.8 K/mm3 Normal No Mar 23 mone informati 2016 1:05 [#/volume on in PM ] in source Blood by data Automated count Granulocy 37.0 - % Normal No Mar 23 mone/100 80.0 informati 2016 1:05 leukocyte on in PM s in source Blood by data Automated count Hematocri 37.0 - % Normal No Mar 23 t [Volume 47.0 informati 2016 1:05 on in PM Fraction] source of Blood data Hemoglobi 12.2 - g/dL Normal No Mar 23 n 16.2 informati 2016 1:05 [Mass/vol on in PM ume] in source Blood data Lymphocyt 0.7 - 4.5 K/mm3 Normal No Mar 23 es informati 2016 1:05 [#/volume on in PM ] in source Unspecifi data ed specimen by Automated count Lymphocyt 10 - 50.0 % Normal No Mar 23 es informati 2016 1:05 [#/volume on in PM ] in source Unspecifi data ed specimen by Automated count Erythrocy 27 - 31.2 pg Normal No Mar 23 te mean informati 2016 1:05 corpuscul on in PM ar source hemoglobi data n [Entitic mass] Erythrocy 31.8 - g/dl Normal No Mar 23 te mean 35.4 informati 2016 1:05 corpuscul on in PM ar source hemoglobi data n concentra tion [Mass/vol ume] by Automated count Erythrocy 82.2 - fl Normal No Mar 23 te mean 97.8 informati 2016 1:05 corpuscul on in PM ar volume source [Entitic data volume] by Automated count Monocytes 0.1 - 1.0 K/mm3 Normal No Mar 23 informati 2016 1:05 [#/volume on in PM ] in source Blood by data Automated count Monocytes 1.7 - 9.3 % Normal No Mar 23 /100 informati 2017 1:05 leukocyte on in PM s in source Blood by data Automated count Platelet 7.4 - fl Normal No Mar 23 mean 10.4 informati 2016 1:05 volume on in PM [Entitic source volume] data in Blood by Automated count Platelets 142 - 424 K/mm3 Normal No Mar 23 informati 2016 1:05 [#/volume on in PM ] in source Blood data Erythrocy 4.2 - 5.4 M/mm3 Normal No Mar 23 mone informati 2017 1:05 [#/volume on in PM ] in source Amniotic data fluid Erythrocy 11.5 - % Normal No Mar 23 te 17.5 informati 2016 1:05 distribut on in PM ion width source [Entitic data volume] by Automated count Leukocyte 4.8 - K/MM3 Normal No Mar 23 s 10.8 informati 2016 1:05 [#/volume on in PM ] in source Blood data Erythrocyte sedimentation rate by Westergren method Observa Value Referen Units Interpr Notes Date tion ce etation Range Erythrocy 0 - 20 mm/hr Normal No Mar 23 te informati 2016 1:05 sedimenta on in PM tion rate source by data Westergre n method Hemoglobin A1c in Blood Observa Value Referen Units Interpr Notes Date tion ce etation Range Hemoglo 5.2 0.0 - % Normal < 6% Mar 23 bin A1c 7.0 NON-DIPIKA 2017 in BETIC 1:05 PM Blood LEVEL< 7% CONTROL LED DIABETI C LEVEL> 8% POORLY CONTROL LED DIABETI C LEVEL Comprehensive metabolic 2000 panel in Serum or Plasma Observa Value Referen Units Interpr Notes Date tion ce etation Range Albumin/G 1.1 - 1.8 No Low No Mar 23 lobulin informati informati 2016 1:05 [Mass on in on in PM ratio] in source source Serum or data data Plasma Albumin 3.4 - 5.0 gm/dL Normal No Mar 23 [Mass/vol informati 2016 1:05 ume] in on in PM Serum or source Plasma data Alkaline 46 - 116 U/L Normal No Mar 23 phosphata informati 2016 1:05 se on in PM [Enzymati source c data activity/ volume] in Serum or Plasma Bilirubin 0.2 - 1.0 mg/dL Normal No Mar 23 .total informati 2016 1:05 [Mass/vol on in PM ume] in source Serum or data Plasma Urea 7 - 18 mg/dL Low No Mar 23 nitrogen informati 2016 1:05 [Mass/vol on in PM ume] in source Serum or data Plasma Calcium 8.5 - mg/dL Normal No Mar 23 [Mass/vol 10.1 informati 2016 1:05 ume] in on in PM Serum or source Plasma data Chloride 98 - 107 mmoL/L Normal No Mar 23 [Moles/vo informati 2016 1:05 lume] in on in PM Serum or source Plasma data Carbon 21.0 - mmoL/L Normal No Mar 23 dioxide, 32.0 informati 2016 1:05 total on in PM [Moles/vo source lume] in data Serum or Plasma Creatinin 0.55 - mg/dL Normal No Mar 23 e 1.02 informati 2016 1:05 [Mass/vol on in PM ume] in source Serum or data Plasma Estimated 59- ML/MIN No REFERENCE Mar 23 informati RANGE: 2017 1:05 glomerula on in >60 PM r source ML/MIN/1. filtratio data 73 SQUARE n rate METERSIf (GF this patient is -A merican, then multiply theresult by 1.210. Globulin 1.3 - 3.2 gm/dL High No Mar 23 [Mass/vol informati 2016 1:05 ume] in on in PM Serum source data Glucose 74 - 106 mg/dL Normal No Mar 23 [Mass/vol informati 2016 1:05 ume] in on in PM Serum or source Plasma data Potassium 3.5 - 5.1 mmoL/L Normal No Mar 23 informati 2016 1:05 [Moles/vo on in PM lume] in source Serum or data Plasma Sodium 136 - 145 mmoL/L Normal No Mar 23 [Moles/vo informati 2016 1:05 lume] in on in PM Serum or source Plasma data Aspartate 15 - 37 U/L Low No Mar 23 inform2016 1:05 aminotran on in PM sferase source [Enzymati data c activity/ volume] in Serum or Plasma Alanine 12 - 78 U/L Normal No Mar 23 aminotran inform2016 1:05 sferase on in PM [Enzymati source c data activity/ volume] in Serum or Plasma Protein 6.4 - 8.2 gm/dL High No Mar 23 [Mass/vol informati 2016 1:05 ume] in on in PM Serum or source Plasma data Basic metabolic panel in Blood Observa Value Referen Units Interpr Notes Date tion ce etation Range Urea 7 - 18 mg/dL Normal No Mar 19 nitrogen inform2016 [Mass/vol on in 12:56 PM ume] in source Serum or data Plasma Calcium 8.5 - mg/dL Normal No Mar 19 [Mass/vol 10.1 informati 2016 ume] in on in 12:56 PM Serum or source Plasma data Chloride 98 - 107 mmoL/L Normal No Mar 19 [Moles/vo informati 2016 lume] in on in 12:56 PM Serum or source Plasma data Carbon 21.0 - mmoL/L Normal No Mar 19 dioxide, 32.0 informati 2016 total on in 12:56 PM [Moles/vo source lume] in data Serum or Plasma Creatinin 0.55 - mg/dL Normal No Mar 19 e 1.02 inform2016 [Mass/vol on in 12:56 PM ume] in source Serum or data Plasma Estimated 59- ML/MIN No REFERENCE Mar 19 informati RANGE: 2017 glomerula on in >60 12:56 PM r source ML/MIN/1. filtratio data 73 SQUARE n rate METERSIf (GF this patient is -A merican, then multiply theresult by 1.210. Glucose 74 - 106 mg/dL Normal No Mar 19 [Mass/vol informati 2016 ume] in on in 12:56 PM Serum or source Plasma data Potassium 3.5 - 5.1 mmoL/L Normal No Mar 19 inform2016 [Moles/vo on in 12:56 PM lume] in source Serum or data Plasma Sodium 136 - 145 mmoL/L Normal No Mar 19 [Moles/vo informati 2016 lume] in on in 12:56 PM Serum or source Plasma data Thyroxine (T4) free [Mass/volume] in Serum or Plasma Observa Value Referen Units Interpr Notes Date tion ce etation Range Thyroxine 0.76 - ng/dL Normal No Mar 19 (T4) 1.46 inform2016 free on in 12:56 PM [Mass/vol source ume] in data Serum or Plasma Lipid 1996 panel in Serum or Plasma Observa Value Referen Units Interpr Notes Date tion ce etation Range Cholester < 200 mg/dL High No Mar 19 ol inform2016 [Moles/vo on in 12:56 PM lume] in source Unspecifi data ed specimen Cholester 40 - 60 MG/DL High No Mar 19 ol in HDL inform2016 on in 12:56 PM [Mass/vol source ume] in data Serum or Plasma Cholester 0 - 130 mg/dL Normal No Mar 19 ol in LDL inform2016 on in 12:56 PM [Mass/vol source ume] in data Serum or Plasma by [place] on Triglycer 30 - 200 mg/dL Normal No Mar 19 arturo inform2016 [Moles/vo on in 12:56 PM lume] in source Serum or data Plasma Cholester 0 - 40 No Normal No Mar 19 ol in informati informati 2017 VLDL on in on in 12:56 PM [Mass/vol source source ume] in data data Serum or Plasma Hepatic function 2000 panel in Serum or Plasma Observa Value Referen Units Interpr Notes Date ti ce etation Range Albumin 3.4 - 5.0 gm/dL Normal No Mar 19 [Mass/vol informati 2016 ume] in on in 12:56 PM Serum or source Plasma data Alkaline 46 - 116 U/L Normal No Mar 19 phosphata 2016 se on in 12:56 PM [Enzymati source c data activity/ volume] in Serum or Plasma Bilirubin 0.0 - 0.2 mg/dL Normal No Mar 19 .direct informati 2017 [Mass/vol on in 12:56 PM ume] in source Serum or data Plasma Bilirubin 0 - 0.9 mg/dL Normal No Mar 19 .indirect informati 2017 on in 12:56 PM [Mass/vol source ume] in data Serum or Plasma Bilirubin 0.2 - 1.0 mg/dL Normal No Mar 19 .total inform2016 [Mass/vol on in 12:56 PM ume] in source Serum or data Plasma Aspartate 15 - 37 U/L Normal No Mar 192016 aminotran on in 12:56 PM sferase source [Enzymati data c activity/ volume] in Serum or Plasma Alanine 12 - 78 U/L Normal No Mar 19 aminotran 2016 sferase on in 12:56 PM [Enzymati source c data activity/ volume] in Serum or Plasma Protein 6.4 - 8.2 gm/dL Normal No Mar 19 [Mass/vol 2016 ume] in on in 12:56 PM Serum or source Plasma data Thyrotropin [Units/volume] in Serum or Plasma Observa Value Referen Units Interpr Notes Date tion ce etation Range Thyrotrop 0.358 - uIU/ml Normal No Mar 19 in 3.740 2016 [Units/vo on in 12:56 PM lume] in source Serum or data Plasma CBC W Auto Differential panel in Blood Observa Value Referen Units Interpr Notes Date tion ce etation Range Basophils 0 - 0.2 K/MM3 Normal No Mar 192016 [#/volume on in 12:56 PM ] in source Blood by data Automated count Basophils 0.1 - 2.0 % Normal No Mar 192016 leukocyte on in 12:56 PM s in source Blood by data Automated count Eosinophi 0.0 - 0.4 K/mm3 Normal No Mar 19 ls 2016 [#/volume on in 12:56 PM ] in source Blood by data Automated count Eosinophi 0.1 - % Normal No Mar 19 ls/100 12.0 2016 leukocyte on in 12:56 PM s in source Blood by data Automated count Granulocy 1.8 - 7.8 K/mm3 Normal No Mar 19 mone 2016 [#/volume on in 12:56 PM ] in source Blood by data Automated count Granulocy 37.0 - % Normal No Mar 19 mone/100 80.0 2016 leukocyte on in 12:56 PM s in source Blood by data Automated count Hematocri 37.0 - % Normal No Mar 19 t [Volume 47.0 2016 on in 12:56 PM Fraction] source of Blood data Hemoglobi 12.2 - g/dL Normal No Mar 19 n 16.2 informati 2016 [Mass/vol on in 12:56 PM ume] in source Blood data Lymphocyt 0.7 - 4.5 K/mm3 Normal No Mar 19 es inform2016 [#/volume on in 12:56 PM ] in source Unspecifi data ed specimen by Automated count Lymphocyt 10 - 50.0 % Normal No Mar 19 es inform2016 [#/volume on in 12:56 PM ] in source Unspecifi data ed specimen by Automated count Erythrocy 27 - 31.2 pg Normal No Mar 19 te mean inform2016 corpuscul on in 12:56 PM ar source hemoglobi data n [Entitic mass] Erythrocy 31.8 - g/dl Normal No Mar 19 te mean 35.4 inform2016 corpuscul on in 12:56 PM ar source hemoglobi data n concentra tion [Mass/vol ume] by Automated count Erythrocy 82.2 - fl Normal No Mar 19 te mean 97.8 informati 2016 corpuscul on in 12:56 PM ar volume source [Entitic data volume] by Automated count Monocytes 0.1 - 1.0 K/mm3 Normal No Mar 19 inform2016 [#/volume on in 12:56 PM ] in source Blood by data Automated count Monocytes 1.7 - 9.3 % Normal No Mar 19 /100 inform2016 leukocyte on in 12:56 PM s in source Blood by data Automated count Platelet 7.4 - fl Low No Mar 19 mean 10.4 inform2016 volume on in 12:56 PM [Entitic source volume] data in Blood by Automated count Platelets 142 - 424 K/mm3 Normal No Mar 19 informati 2016 [#/volume on in 12:56 PM ] in source Blood data Erythrocy 4.2 - 5.4 M/mm3 Normal No Mar 19 mone informati 2016 [#/volume on in 12:56 PM ] in source Amniotic data fluid Erythrocy 11.5 - % Normal No Mar 19 te 17.5 informati 2016 distribut on in 12:56 PM ion width source [Entitic data volume] by Automated count Leukocyte 4.8 - K/MM3 Normal No Mar 19 s 10.8 informati 2016 [#/volume on in 12:56 PM ] in source Blood data
[2017-07-21] MEDS ORDERED: FLEXERIL10 MG PO (17:04)
[2017-07-21] MEDS ORDERED: PLAQUENIL200 MG PO (17:05)
[2017-07-21] MEDS ORDERED: METOPROLOL25 MG PO (17:06)
[2017-07-21] MEDS ORDERED: AMITRIPTYLINE 225 MG PO (17:07)
--- NOTE | 2017-07-21 17:15 | Urgent Treatment Center Report ---
See Addendum History of Present Issue Date/Time Seen by Provider 07/21/17 1650 Visit Reason Pt arrived:Walked Presenting Problem:PT HAS LT FOOT PAIN THAT STARTED BOTHERING HER 2-3 DAYS AGO. UNSURE IF SHE INJURIED IT. SWELLING ON LATERAL AREA AND DISCOLORATION AT GREAT TOE. Location if Accident: Onset of symptoms date/time:/ or onset unknown for:MEDICAL HX UNKNOWN Have you (or family members/close friends) recently traveled outside the [place]? N If Yes, where/when: Have you had exposure to infectious disease within the past month? TB? Other? Specify: c/o needing an xray because not sure if her left toe and ankle are broke or not. Tripped over a toy 2-3 days ago. Thinks she might have twisted her ankle in the process but not sure. No immediate pain. "I got up and seemed ok". However throughout the day yesterday and today, pain and swelling worse. 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 No improvement w/ intermittent tylenol "but I havent taken much". Hasn't taken or tried anything else. Pain constant in left lateral ankle and left great toe. Worse with ambulating but also ROM. Swelling primarily left lateral ankle. Bruising left great toe. pt reporting BP "typicaly normal at home" but gets very nervous at doctor's offices or hospitals. Denies LEE, CP, nausea, dizziness, vision changes. Source patient Exam Limitations no limitations ALLERGIES Coded Allergies: No Known Allergies (05/10/16) Home Medications Reported Medications Escitalopram Oxalate 10 MG PO DAILY #30 Cyclobenzaprine Hcl (Flexeril) 5 MG PO PRN PRN PAIN Hydroxychloroquine Sulfate (Plaquenil) 200 MG PO DAILY Metoprolol Tartrate (Metoprolol) 12.5 MG PO BID Amitriptyline Hcl (Amitriptyline) 25 MG PO QHS History Medical History General CAD? No Angina: No [place]: No Hypertension? Yes Hyperlipidemia? No CHF? No DVT? No PE? No COPD? No Asthma? No Anemia? No GERD? No Gastric ulcers? No GI Bleed? No Hernia? No Thyroid Problems? No Hypothyroidism? No CVA? No Seizures? No Diabetes? No Renal Insuffiency? No UTI? Yes Stones? No BPH? No GB Disease: Yes Nephritic Syndrome? No Asplenia? No Hepatitis? No Sickle Cell Disease? No Arthritis? No Migraines? No Cataracts? No Glaucoma? No MRSA? No HIV? No TB? No Anxiety? No Depression? No Cancer? No More? Yes Additional hx: SJOGREN'S SYNDROME Immunization HX DT/Tetanus 1-4 Years Ago Flu 2012-14FSN Pneumonia Received In Past Surgical Hx Previous Surgery?Y GALLBLADDER Family History Family HX Diabetes Yes CAD No Hypertension Yes Hyperlipidemia Yes Cancer Yes TB No Social History Smoking Hx Smoker: Never Smoker Tobacco: No Alcohol Alcohol: No Review of Systems All Other Systems Reviewed and Negative (as appropriate for CC) Constitutional denies fever, denies malaise Musculoskeletal see HPI, denies other (leg, hip, back, head pain) Skin see HPI, denies lesions Psychiatric/Neurological denies numbness, denies tingling Physical Exam Vital Signs Vital Signs Date Time Temp Pulse Resp B/P Pulse O2 O2 Flow FiO2 Ox Delivery Rate 07/21 1659 97.9 104 20 158/116 97 General Appearance normal appearance, no apparent distress, nervous/akward conversation Respiratory Status No: respiratory distress. Cardiovascular no peripheral edema Peripheral Pulses Pulses normal Yes (DP/PT) Back gait abnormality (slight limp favoring left foot) Extremities mild swelling and TTP left lateral malleous, mild swelling generalized throughout left great toe w/ TTP & ecchymosis MTP joint, pain w/ left ankle ROM & left great toe flexion Neurologic alert, no motor/sensory deficits Skin intact, warm/dry Medical Decision Making LABS/Meds/Orders Pt receiving controlled substance in ED? No Results/Orders Orders Procedure Date/time Status [facility] STABILIZE JOINT/AREA 07/21 174 Active XRAY/CT/US XRAY/CT/US XRAY ankle (left), foot (left) XR interpretation by reviewed by me (w/ Dr. Whalen, radiologist) Xray Results no fracture seen, no acute findings Departure Departure Time of Disposition 1742 Disposition DC Home or Self Care(routine) Clinical Impression Primary Impression: Left ankle sprain Qualifiers: Encounter type: initial encounter Involved ligament of ankle: unspecified ligament Qualified Code: S93.402A - Sprain of unspecified ligament of left ankle, initial encounter Secondary Impressions: Sprain of left great toe Qualifiers: Encounter type: initial encounter Qualified Code: S93.502A - Unspecified sprain of left great toe, initial encounter Condition STABLE Referrals FLORINA DUMONT DPM Call Wednesday if no noticeable improvement. Just call their office and tell them you were in [place] today. foot and ankle xrays negative. Dx sprain and still having symptoms. Return sooner for new or worsening symptoms. Patient Instructions DI for Ankle Sprain, DI for Toe Sprain, How to Apply an Jeet Wrap, How To Perform RICE (Rest, Ice, Compress, Elevate), How to Use Crutches Additional Instructions * weight bearing as tolerated. If it is too painful, don't bear weight. * Rest * ice 15-20 mins 3-4 times a day * Jeet wrap for support and swelling unless in shower. Be sure not too tight but not too loose either * Elevate as discussed as much as possible to help reduce swelling and therefore , pain * Ibuprofen every 6 hours as needed for pain and inflammation. If you need something more, you can take tylenol every 4 hours as needed as long as your primary care provider has told you it is ok to take both. Discharge Counseling Counseled pt/family regarding diagnosis, test results, medications/RX, home care, follow up needs at [phone]
--- NOTE | 2017-07-21 17:40 | RADIOLOGY REPORT PS360 ---
FOOT-LT-3 VIEWS HISTORY: Injury following pain PAIN 2 DAYS ORDERING PHYSICIAN: ENA NAPIER APRN PATIENT AGE: 32 years COMPARISON: None FINDINGS: No fracture or dislocation. No lytic or blastic change. There is normal mineralization.. The joint spaces are well-preserved. No significant degenerative/arthritic changes. No erosive changes evident. IMPRESSION: Negative left foot, no acute finding
--- NOTE | 2017-07-21 17:41 | RADIOLOGY REPORT PS360 ---
ANKLE-LT-3 VIEWS HISTORY: Pain following injury PAIN 2 DAYS ORDERING PHYSICIAN: ENA NAPIER APRN PATIENT AGE: 32 years COMPARISON: None FINDINGS: No fracture or dislocation. No lytic or blastic change. There is normal mineralization.. The joint spaces are well-preserved. No significant degenerative/arthritic changes. No erosive changes evident. IMPRESSION: Negative ankle, no acute finding
[2017-07-21 17:49] VITALS: BP 158/116
== END 2017-07-21 17:50 | disposition home or self-care (01) ==
LOC: UTC 16:39
DX: S93.402A Sprain of unspecified ligament of left ankle, initial encounter (principal); S93.502A Unspecified sprain of left great toe, initial encounter; I10 Essential (primary) hypertension

== ENCOUNTER → 2017-07-22 | Outpatient (CLI) | payer BC ==
[~2017-07-22] MED LIST changes: +AMITRIPTYLINE 225 MG PO; +FLEXERIL10 MG PO; +METOPROLOL25 MG PO; +PLAQUENIL200 MG PO
== END ==
LOC: UTC.OUT 16:56
DX: S93.402A Sprain of unspecified ligament of left ankle, initial encounter (principal); S93.502A Unspecified sprain of left great toe, initial encounter

== ENCOUNTER → 2017-08-18 | Outpatient (CLI) | payer BC ==
[~2017-08-18] MED LIST changes: +NEURONTIN400 M1; +VOLTAREN100 GM TP
--- NOTE | 2017-08-23 09:59 | RADIOLOGY REPORT PS360 ---
MRI-LOW EXT OTH THN JNT W/WOLT HISTORY: EXTENSOR HALLIGUS LONGUS, FOOT PAIN, EDL WEAKNESS, inability to bend toes on left foot ORDERING PHYSICIAN: FLORINA DUMONT DPM PATIENT AGE: 32 years COMPARISON: Radiograph of 07/21/2017 FINDINGS: The study is tailored to the forefoot. The extensor pollicis longus tendon appears intact. The extensor digitorum longus also appears intact. No abnormal enhancement of the toes. There are mild osteoarthritic changes of the first metatarsophalangeal joint with small amount of fluid in the first MTP joint. Mild hypertrophic changes are present at the distal first metatarsal. Flexor hallucis longus and extensor digitorum longus tendons appear intact. No fracture or dislocation. No destructive process or soft tissue masses. Small amount fluid is present at the metatarsophalangeal joints of digits 1 through 4. IMPRESSION: 1. The extensor digitorum longus and extensor hallucis longus tendons do appear intact 2. Mild osteoarthritic changes of the first MTP joint with a small amount fluid in the first, second, third, and fourth MTP joints
== END ==
LOC: RAD 12:56
DX: M79.672 Pain in left foot (principal); S96.912A Strain of unspecified muscle and tendon at ankle and foot level, left foot, initial encounter; M77.52 Other enthesopathy of left foot and ankle
CPT/HCPCS: A9576